=== PATIENT | female | born 1975 | race Caucasian/White ===

== ENCOUNTER 2018-05-11 12:23 | Emergency (ER) | payer MEDICAID, SELFPAY ==
[2018-05-11 12:24] VITALS: BP 92/67; PULSE 112; RESP 20; TEMP 37.2; O2SAT 98; BMI 26.5
[2018-05-11 12:26] VITALS: BP 115/79; PULSE 104; RESP 18; TEMP 37.1; O2SAT 94
--- NOTE | 2018-05-11 12:41 | RAD_ITS ---
STUDY: X-RAY CHEST REASON FOR EXAM: Female, 43 years old. 2 day history of cough and fever. TECHNIQUE: PA and lateral views of the chest. COMPARISON: Comparison is made with prior study dated May 28, 2016. FINDINGS: The lungs are clear and expanded. Scattered calcified granulomas. There is no demonstrated pleural abnormality. Normal size heart. Normal mediastinum and deon. Normal visualized pulmonary arteries. Normal visualized aortic arch and descending thoracic aorta. Normal visualized thoracic spine. Normal visualized ribs, clavicles, and shoulders. There is no demonstrated abnormality of the visualized soft tissue structures of the upper abdomen. RAD/Chest PA and Lateral IMPRESSION: Normal x-ray examination of the chest. Electronically Signed: Andriy Delong MD at 13:19 EST Tel [phone], Service support ,
--- NOTE | 2018-05-11 12:45 | ED.VISSUMM ---
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 Patient has not had a physician for the last 6 months because she moved from [place] and does not see anyone locally. She states for the last 2 days she has had a cough, fever and sweats. She denies any nausea, vomiting or diarrhea. No dysuria. Nonproductive cough. She denies any abdominal pain. Physical Examination: Middle-aged female. Initial blood pressure 92/67. Temperature 98.9. Heart rate 112. Respiratory rate 20. Pulse ox 90% on room air no signs of hypoxia. Patient looks like she does not feel well. She does not look toxic. HEENT exam dry mucous membranes. Otherwise unremarkable. Poor dentition. Neck nontender no lymphadenopathy. Lungs dry cough. No rales, rhonchi or wheezing. Equal and symmetrical. Heart tachycardic rate about 110 no murmur. Abdomen soft and nontender. Normal bowel sounds no peritoneal signs. Patient is moving all 4 extremities. Neurovascular intact. Calves nontender. Back nontender. Skin unremarkable. Neurologically she is awake alert with no focal motor deficits. Test Results: CBC normal. White count 4. Hemoglobin 15. No bands. Chemistries normal. Gap at 9. Creatinine 1.24 which is her baseline. Lactic acid normal 0.9 influenza A was positive. Consistent with acute influenza. Chest x-ray showed no acute abnormality read both of myself and the radiologist. Emergency Department Course and Treatment: Patient with a respiratory infection. We treated with IV fluids due to her hypotension and clinical dehydration. Labs and chest x-ray will be obtained. Patient be started on Tamiflu. Given first dose in the ER. She has received 2 L normal saline looks and feels better. Her pressure now is currently 110/60. Treatment Plan: Fluids and rest. Tylenol for fever. Tamiflu. Disposition: Discharge Impression: Acute influenza A Acute dehydration Acute hypotension History of HIV This note was generated with [employer] dictation software. It may contain incorrect words, spelling, and punctuation that were not noted in review of the chart prior to signing ED Disposition - Plan for ED Patient: Chief Complaint: Fever Referrals: [facility] Doctor,Out of [NON-STAFF] -
--- NOTE | 2018-05-11 12:48 | ED.DCSUM_ITS ---
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 Patient has not had a physician for the last 6 months because she moved from [place] and does not see anyone locally. She states for the last 2 days she has had a cough, fever and sweats. She denies any nausea, vomiting or diarrhea. No dysuria. Nonproductive cough. She denies any abdominal pain. Physical Examination: Middle-aged female. Initial blood pressure 92/67. Temperature 98.9. Heart rate 112. Respiratory rate 20. Pulse ox 90% on room air no signs of hypoxia. Patient looks like she does not feel well. She does not look toxic. HEENT exam dry mucous membranes. Otherwise unremarkable. Poor dentition. Neck nontender no lymphadenopathy. Lungs dry cough. No rales, rhonchi or wheezing. Equal and symmetrical. Heart tachycardic rate about 110 no murmur. Abdomen soft and nontender. Normal bowel sounds no peritoneal signs. Patient is moving all 4 extremities. Neurovascular intact. Calves nontender. Back nontender. Skin unremarkable. Neurologically she is awake alert with no focal motor deficits. Test Results: CBC normal. White count 4. Hemoglobin 15. No bands. Chemistries normal. Gap at 9. Creatinine 1.24 which is her baseline. Lactic acid normal 0.9 influenza A was positive. Consistent with acute influenza. Chest x-ray showed no acute abnormality read both of myself and the radiologist. Emergency Department Course and Treatment: Patient with a respiratory infection. We treated with IV fluids due to her hypotension and clinical dehydration. Labs and chest x-ray will be obtained. Patient be started on Tamiflu. Given first dose in the ER. She has received 2 L normal saline looks and feels better. Her pressure now is currently 110/60. Treatment Plan: Fluids and rest. Tylenol for fever. Tamiflu. Disposition: Discharge Impression: Acute influenza A Acute dehydration Acute hypotension History of HIV This note was generated with [employer] dictation software. It may contain incorrect words, spelling, and punctuation that were not noted in review of the chart prior to signing ED Disposition - Plan for ED Patient: Chief Complaint: Fever Referrals: [facility] Doctor,Out of [NON-STAFF] -
[2018-05-11] MEDS: 0.9% Normal Saline 1,000 ML 1000 ML IV ×2 (12:51→14:53)
[2018-05-11 13:04] LABS: Absolute Neutrophil Count 3.1 X10^3/uL (2.0-7.7); Basophil# 0.03 X10^3/uL; Basophil% 0.7 % (0-1); Hematocrit 45.4 % (37-47); Hemoglobin 15.2 g/dl (12.0-15.0); Mean Corp Hgb Conc 33.5 g/gl (32-36); Mean Corpuscular Hgb 30.8 pg (27.0-32.0); Mean Corpuscular Volume 92.1 fL (81-99); Mean Platelet Vol. 11.1 fl (6.2-12.0); Monocyte# 0.52 X10^3/uL; Monocyte% 11.9 % (0-10); Neutrophil # 3.11 X10^3/uL (2.7-7.7); Neutrophil % 71.2 % (47-70); Platelet Count 168 K/mm3 (150-450); RBC Distribution Width CV 13.5 % (11.6-14.6); Red Blood Count 4.93 M/mm3 (4.2-5.4); White Blood Count 4.4 K/mm3 (4.4-11.0)
[2018-05-11 13:09] LABS: POSITIVE COUNT NO; POSITIVE DIFFERENTIAL NO; POSITIVE MORPHOLOGY NO
[2018-05-11 13:12] LABS: Anion Gap 9 (5-15); BUN 11 mg/dL (7-18); BUN/Creat Ratio 8.9 RATIO (10-20); Calcium,Total 8.7 mg/dL (8.5-10.1); Chloride 112 mmol/L (98-107); Creatinine, Serum 1.24 mg/dL (0.55-1.02); EST Glomerular Filtration Rate 50 mL/min (>60); Est Glom Filt Rate - Afr Amer 61 mL/min (>60); Estimated Creatinine Clearance 48.89 ml/min; Glucose 86 mg/dL (74-106); Potassium 3.7 mmol/L (3.5-5.1); Sodium Level 144 mmol/L (136-145)
--- NOTE | 2018-05-11 13:22 | ED.RN ---
pos flu a called from the lab. dr bernal aware
[2018-05-11 13:25] LABS: Lactic Acid 0.9 mmol/L (0.4-2.0)
--- NOTE | 2018-05-11 14:51 | ED.DEP ---
ED Disposition - Plan for ED Patient: Disposition: Home or Assisted Living Chief Complaint: Fever Instructions: ED Flu Prescriptions: Oseltamivir Phosphate [Tamiflu] 75 mg PO DAILY #5 cap Referrals: Fede Velázquez MD [NON-STAFF] - As soon as possible Additional Instructions: He will have been diagnosed with influenza. Plenty of fluids and rest. Alternate Tylenol Motrin for fever. Tamiflu daily.
[2018-05-11 14:55] VITALS: BP 102/67; PULSE 84; RESP 18; TEMP 36.6; O2SAT 98
[2018-05-11] MEDS: Acetaminophen 500 MG Tablet 1000 MG PO (16:39)
[2018-05-11] MEDS: Oseltamivir Phosphate 75 MG Capsule PO (16:39)
[2018-05-11 16:40] VITALS: BP 115/75; PULSE 102; RESP 18; O2SAT 102
== END 2018-05-11 16:46 | disposition home or self-care (01) ==
PROVIDERS: Emergency Provider Emergency Medicine
DX: J09.X2 Influenza due to identified novel influenza A virus with other respiratory manifestations (principal); E86.0 Dehydration; I95.9 Hypotension, unspecified; B20 Human immunodeficiency virus [HIV] disease; Z87.440 Personal history of urinary (tract) infections; Z72.0 Tobacco use; Z79.899 Other long term (current) drug therapy
CPT/HCPCS: 71046; 80048; 83605; 85025; 87804; 96360; 96361; 99285; J7030

== ENCOUNTER → 2020-08-31 12:41 | Outpatient (CLI) | payer MEDICAID, SELFPAY ==
[2020-08-31 13:44] LABS: Absolute Lymphocyte Count 0.97 X10^3/uL (0.83-4.51); Absolute Neutrophil Count 2.5 X10^3/uL (2.0-7.7); Basophil# 0.04 X10^3/uL; Eosinophils% 7.2 % (0-5); Hematocrit 45.1 % (37-47); Hemoglobin 14.5 g/dL (12.0-15.0); Lymphocyte # 0.97 X10^3/ul (4.0); Lymphocyte % 23.3 % (19-41); Mean Corp Hgb Conc 32.2 g/dL (32-36); Mean Corpuscular Hgb 29.2 pg (27.0-32.0); Mean Corpuscular Volume 90.7 fL (81-99); Monocyte# 0.33 X10^3/uL; Monocyte% 7.9 % (0-10); NRBC Flagged by Analyzer 0 % (0-5); Neutrophil # 2.51 X10^3/uL (2.7-7.7); Neutrophil % 60.4 % (47-70); Platelet Count 190 K/mm3 (150-450); RBC Distribution Width CV 13.3 % (11.6-14.6); Red Blood Count 4.97 M/mm3 (4.2-5.4); White Blood Count 4.2 K/mm3 (4.4-11.0)
[2020-08-31 14:10] LABS: ALB/GLOB Ratio 0.9 RATIO (0.9-2.4); AST(SGOT) 32 U/L (15-37); Alanine Aminotransfer ALT/SGPT 42 U/L (13-56); Albumin, Serum 3.7 g/dL (3.2-5.0); Alkaline Phosphatase 144 U/L (45-117); Anion Gap 4 (5-15); BUN 12 mg/dL (7-18); BUN/Creat Ratio 11.7 RATIO (10-20); Calcium,Total 8.8 mg/dL (8.5-10.1); Chloride 109 mmol/L (98-107); Cholesterol 232 mg/dL (200); Creatinine, Serum 1.03 mg/dL (0.55-1.02); EST Glomerular Filtration Rate 62 mL/min (>60); Est Glom Filt Rate - Afr Amer 75 mL/min (>60); Globulin 4.2 g/dL (2.2-4.2); Glucose 124 mg/dL (74-106); High Density Lipoprotein 26 mg/dL; Potassium 3.3 mmol/L (3.5-5.1); Protein, Total 7.9 g/dL (6.4-8.2); Sodium Level 142 mmol/L (136-145); Triglycerides 205 mg/dL; Very Low Density Lipoprotein 41 mg/dL (5-40)
[2020-08-31 14:31] LABS: Hepatitis B Surface Antibody Reactive; Syphilis Antibodies Non-reactive
[2020-08-31 17:23] LABS: Chlamydia Trachomatis by PCR Negative (Negative); Neisserai gonorrhoeae by PCR Negative (Negative); Probe Check PASS; Sample Adequacy Control PASS; Specimen Processing Control PASS
[2020-09-02 11:33] LABS: HIV-1 RNA by PCR, Quant. 61600 copies/mL (.)
[2020-09-02 22:13] LABS: Absolute CD4 Helper 68 /uL (359-1519); Basophils (Absolute) 0.1 x10E3/uL (0.0-0.2); Eosinophils 7 % (Not Estab.); Eosinophils (Absolute) 0.3 x10E3/uL (0.0-0.4); HEPATITIS B SURFACE AG Negative (Negative); Hematocrit 42.6 % (34.0-46.6); Hemoglobin 14.2 g/dL (11.1-15.9); Hepatitis A IgM Antibody Negative (Negative); Hepatitis B Core AB IgM Negative (Negative); Immature Granulocytes 0 % (Not Estab.); Immature Granulocytes Absolute 0 x10E3/uL (0.0-0.1); Lymphs 27 % (Not Estab.); Lymphs (Absolute) 1.1 x10E3/uL (0.7-3.1); MCH 28.9 pg (26.6-33.0); MCHC 33.3 g/dL (31.5-35.7); MCV 87 fL (79-97); Monocytes 7 % (Not Estab.); Monocytes (Absolute) 0.3 x10E3/uL (0.1-0.9); Neutrophils 58 % (Not Estab.); Neutrophils (Absolute) 2.5 x10E3/uL (1.4-7.0); Percent % CD4 Pos. Lymph. 6.2 % (30.8-58.5); Percent % CD8 Pos. Lymph. 61.5 % (12.0-35.5); Platelets 183 x10E3/uL (150-450); Red Blood Cell Count Test/G6PD 4.91 x10E6/uL (3.77-5.28); WBC Count 4.3 x10E3/uL (3.4-10.8)
[2020-09-03 16:35] LABS: G6PD Quant Test 268 (127-427); Hep C Antibodies <0.1 s/co ratio (0.0-0.9); Hepatitis A AB, Total Positive (Negative)
[2020-09-03 16:40] LABS: RBC Count 4.91
== END ==
PROVIDERS: PCP Student in an Organized Health Care Education/Training Program; Referring Provider Internal Medicine Infectious Disease; Visit Provider Internal Medicine Infectious Disease
DX: B20 Human immunodeficiency virus [HIV] disease (principal)
CPT/HCPCS: 36415; 80053; 80061; 80074; 82955; 85025; 86360; 86706; 86708; 86780; 87491; 87536; 87591